=== PATIENT | male | born 1960 | race Caucasian/White ===

== ENCOUNTER 2017-03-01 08:01 | Day surgery (SDC) | payer OTHER ==
[2017-03-01 08:25] VITALS: BMI 30.9
[2017-03-01] MEDS ORDERED: Propofol 10 mg/ml Inj (20 ML) ONE ×2 (09:55→10:08)
[2017-03-01 12:55] VITALS: BP 132/73; PULSE 69; RESP 21; TEMP 98.1; O2SAT 98
== END 2017-03-01 12:00 | disposition home or self-care (01) ==
LOC: C.ENDO 08:01
PROVIDERS: ATTEND Internal Medicine
DX: K62.1 Rectal polyp (principal); K92.1 Melena; K64.8 Other hemorrhoids; D12.5 Benign neoplasm of sigmoid colon
CPT/HCPCS: 45388; 88305; J2704

== ENCOUNTER 2017-10-04 09:57 | Day surgery (SDC) | payer OTHER ==
[2017-09-26 12:22] VITALS: BMI 29.3
--- NOTE | 2017-10-04 09:15 | CP.SDSHP ---
Same Day Surgery H & P - History Proposed Procedure: hemorrhoidectomy - Previous Medical/Surgical History Comments: rectal bleeding Previous Surgical History: hemorrhoidectmies 1995 2001. Ligations 08/2016 - Allergies Allergies: Allergies No Known Allergies Allergy (Verified 09/26/17 12:32) - Date & Time Date: 10/04/17 Time: 09:15 Short Stay Discharge - Short Stay Discharge Admitting Diagnosis/Reason for Visit: EXTERNAL / INTERNAL HEMORRHOIDS Disposition: HOME/ ROUTINE
[2017-10-04] MEDS ORDERED: Midazolam 2 MG/2 ML VIAL ONE (13:31)
[2017-10-04] MEDS ORDERED: Propofol 10 mg/ml Inj (20 ML) ONE (13:31)
[2017-10-04] MEDS ORDERED: Ciprofloxacin 400mg/200ml D5W 400 MG/200 ML BAG IVPB ONE (13:46)
--- NOTE | 2017-10-04 14:36 | PCM.SURG1 ---
Surgeon's Initial Post Op Note - Surgeon's Notes Surgeon: Madhav HESTER MD [place] Manager: None Type of Anesthesia: General LMA Anesthesia Administered By: Dr Kaplan Pre-Operative Diagnosis: Large prolapsing bleeding internal external hemorrhoids Operative Findings: Large internal external hemorrhoids prolapsing bleeding anterior with fragile mucosa . smaller posterior Post-Operative Diagnosis: same Operation Performed: Hemorrhoidectomy internal external and correction of mucosal prolapse Specimen/Specimens Removed: Hemorrhoids external internal . Mucosa Estimated Blood Loss: EBL {In ML}: 25 Blood Products Given: N/A Drains Used: No Drains Post-Op Condition: Good Date of Surgery/Procedure: 10/04/17 Time of Surgery/Procedure: 20:00
[2017-10-04] MEDS ORDERED: Lactated Ringer's 1,000 ML IV ONE ×3 (14:48→15:45)
[2017-10-04] MEDS ORDERED: HYDROmorphone 0.5 mg/0.5 ml ISec ONE (15:16)
[2017-10-04] MEDS ORDERED: HYDROmorphone 0.5 mg/0.5 ml ISec IVP PRN ×2 (15:25→15:57)
[2017-10-04] MEDS ORDERED: HYDROmorphone 0.5 mg/0.5 ml ISec IVP ONE (15:30)
[2017-10-04 17:10] VITALS: BP 162/72; PULSE 69; RESP 18; TEMP 98; O2SAT 100
--- NOTE | 2017-10-11 12:44 | OP ---
DATE: 10/04/2017 SURGEON: Dr. Caleb Goddard ANESTHESIOLOGIST: , Dr. Kaplan. PREOPERATIVE DIAGNOSIS: Internal and external hemorrhoids with large prolapsing and bleeding. POSTOPERATIVE DIAGNOSIS: Internal and external hemorrhoids with large prolapsing and bleeding. PROCEDURE: Hemorrhoidectomy, internal and external correction of mucosal prolapse. FINDINGS: This is a 56-year-old gentleman who had a pad and prolapsing bleeding hemorrhoid that had 2 surgeries in the usual 2004 and 1995 and a ligation of colonoscopy last year he continued to have prolapsing hemorrhoids and bleeding, significant time. OPERATIVE FINDINGS: We were large internal and external hemorrhoids with mucosal prolapse and in the right anterior location there were moderate in the right and left posterior location, there was some scarring from the previous surgery and treatment. PROCEDURE: After satisfactory anesthesia, patient in stirrups. The perineum was prepped and abcarian fashion. The perianal tissue was infiltrated with Marcaine 1/25 percent with large external tract in place, the large prolapsing internal hemorrhoid was excised and sutured with 2-0 chromic suture and it sliding excess mucosa and prolapsing engorged to prolapse the skin at the excess was excised and then closed with interrupted 2-0 chromic sutures. There was a single controlled with ligation from 8 EEA granular mucosa. The hemorrhoid in the left posterior lateral location over excised and closed with 2-0 chromic suture. At the end of the procedure, a Surgicel including the need to do with FloSeal was inserted in the anal canal with no further bleeding noted. Estimated blood loss about 25. MTDD
== END 2017-10-04 18:28 | disposition home or self-care (01) ==
LOC: C.SDS 09:57
PROVIDERS: ATTEND Colon & Rectal Surgery
DX: K64.8 Other hemorrhoids (principal); K64.4 Residual hemorrhoidal skin tags
CPT/HCPCS: 46260; 88304; C2615; J1170; J2250; J2405; J2704; J3010; J7120